=== PATIENT | female | born 1995 | race Caucasian/White ===

== ENCOUNTER 2018-01-15 14:13 | Outpatient (CLI) | payer SELFPAY | END 2018-01-15 14:14 | disposition home or self-care (01) | LOC: LABBT 14:13 | PROVIDERS: ATTEND Orthopaedic Surgery | DX: Z01.818 Encounter for other preprocedural examination (principal); S82.842A Displaced bimalleolar fracture of left lower leg, initial encounter for closed fracture ==

== ENCOUNTER 2018-01-16 10:59 | Day surgery (SDC) | payer MEDICAID, SELFPAY ==
[2018-01-15 14:25] VITALS: BMI 27.4
[2018-01-16] MEDS ORDERED: CEFAZOLIN/Water 2 GM/20 ML SYRINGE ONE (11:24)
[2018-01-16] MEDS ORDERED: Ropivacaine 0.2% HCl/PF 20 ML ONE (11:49)
[2018-01-16] MEDS ORDERED: Midazolam HCl 2 mg/2 ml Vial ONE ×4 (11:49→14:17)
[2018-01-16] MEDS ORDERED: Fentanyl 100 MCG/2 ML VIAL ONE ×2 (11:49→12:33)
[2018-01-16] MEDS ORDERED: Dexamethasone 4 mg/ml Vial ONE (11:49)
[2018-01-16] MEDS ORDERED: traMADol HCl 50 MG TAB PO PRN ×2 (12:19)
[2018-01-16] MEDS ORDERED: Ondansetron HCl/PF 4 MG/2 ML Vial IVP PRN (12:19)
[2018-01-16] MEDS ORDERED: Ropivacaine 0.2% 550 ML 550 ML NERVE BLCK SCH (12:19)
[2018-01-16] MEDS ORDERED: Zolpidem Tartrate 5 MG TAB PO PRN (12:19)
[2018-01-16] MEDS ORDERED: Promethazine HCl 25 MG/ML VIAL IM PRN (12:19)
[2018-01-16] MEDS ORDERED: Ketorolac Tromethamine 30 MG/ML VIAL IVP PRN (12:19)
[2018-01-16] MEDS ORDERED: Fentanyl 100 MCG/2 ML VIAL IV PRN (12:20)
[2018-01-16] MEDS ORDERED: HYDROcodone/Acetaminophen 7.5/325 mg Tablet PO PRN ×2 (12:22→12:23)
[2018-01-16] MEDS ORDERED: Ondansetron HCl/PF 4 MG/2 ML Vial ONE ×2 (12:33→15:36)
[2018-01-16] MEDS ORDERED: Ropivacaine 0.5% HCl/PF (150 MG/30 ML VIAL) ONE (13:11)
[2018-01-16] MEDS ORDERED: Bupivacaine PF 0.5% 30 ML VIAL ONE (13:11)
[2018-01-16] MEDS ORDERED: Ropivacaine 0.2% HCl/PF (40 MG/20 ML VIAL) ONE (13:11)
[2018-01-16] MEDS ORDERED: Ketorolac Tromethamine 30 MG/ML VIAL ONE (15:13)
[2018-01-16] MEDS ORDERED: ePHEDrine/0.9% NaCl/PF SYRINGE 50 mg/10 ml ONE (15:36)
[2018-01-16] MEDS ORDERED: Lidocaine 1% PF 5 ML VIAL ONE (15:36)
[2018-01-16] MEDS ORDERED: Dexamethasone 20 MG/5 ML VIAL ONE (15:36)
[2018-01-16] MEDS ORDERED: PHENYLEPHRINE-NS 100 MCG/ML 10 ML SYRINGE ONE (15:36)
[2018-01-16] MEDS ORDERED: PROPOFOL 200 MG/20 ML VIAL ONE (15:36)
--- NOTE | 2018-01-16 15:39 | RAD ---
LEFT ANKLE 3 VIEWS: HISTORY: Evaluate left ankle. FINDINGS/IMPRESSION: Three spot fluoroscopic intraoperative images of the left ankle demonstrate interval reduction and in ternal fixation of the medial and left malleolar fracture since 12/30/17. There are 2 screws to the m edial malleolus and a plate and screws through lateral malleolus. POS: MARION
--- NOTE | 2018-01-16 20:15 | OP ---
DATE OF SURGERY: 01/16/2018 PREOPERATIVE DIAGNOSIS: Left bimalleolar ankle fracture. POSTOPERATIVE DIAGNOSIS: Left bimalleolar ankle fracture. SURGICAL PROCEDURE: Open reduction and internal fixation of left bimalleolar ankle fracture. ANESTHESIA: General. SURGEON: Gilbert De Guzman M.D. OUTSIDE FOOD SERVER: Lee Alvarez PA-C. TOURNIQUET TIME: Approximately 60 minutes at 300 mmHg. ESTIMATED BLOOD LOSS: Less than 10 mL IMPLANTS: A Synthes 3.5 mm LCP hook plate with a combination of 3.5 mm cortical screws and 4.0 mm ca ncellous screws. COMPLICATIONS: None. DRAINS: None. SPECIMEN: None. OUTCOME: Satisfactory. INDICATIONS: The patient is a 22-year-old lady status post twisting injury to the left ankle, sustai jacqueline a bimalleolar ankle fracture approximately 2 weeks ago. The patient does have displacement of h er fractures and after discussion with patient including risks and benefits, we decided to proceed wi open reduction and internal fixation. Informed consent has been obtained. I believe all question s answered. PROCEDURE IN DETAIL: The patient was brought to the operating room and a timeout performed followed by induction of general anesthesia. The patient was positioned supine on the OR table and then a zaid rile prep and drape was performed of the left lower extremity. Next, the limb was exsanguinated with Esmarch bandage, tourniquet inflated to 300 mmHg. A vertical incision was made over the lateral mal leolus. After skin was sharply incised, dissection was carried down bluntly and then using minimal s ubperiosteal dissection, the fracture edges were identified and visualized. The fracture hematoma an d some early callus were removed using a combination of osteotome and rongeur. Next, the fracture wa s reduced and then held in place with a hook plate. The hooks were passed at the tip of the lateral malleolus and then 2 cortical screws were placed in the horizontal holes proximal to the fracture. O nce the plate was affixed to the lateral wall of the distal fibula, a third screw, this being a 4.0 m m cancellous screw partially threaded was passed from the tip of the hook plate obliquely across the fracture into the distal fibular canal. This resulted in excellent compression across the fracture a nd anatomic stabilization of the fracture. Next, a second incision was made overlying the medial mal leolus vertically. After skin was sharply incised, dissection was carried down bluntly to the underl daisy fracture. The fracture hematoma was lavaged from the fracture gap and then the fracture reduced and held in place with a bone tenaculum. Two 4.0 mm partially threaded cancellous screws were then passed from the tip of the medial malleolus obliquely across the fracture into the distal tibial meta physis. Final AP, lateral and mortise C-arm images were obtained and showed anatomic alignment of th e fracture. The two wounds were then irrigated with normal saline using bulb syringe and then closed in layers with 0 Vicryl deep, followed by 2-0 Vicryl and then akash for the final skin closure. A Xeroform gauze, Webril, and fiberglass splint was applied to the ankle and then patient was transfer red to recovery room in stable condition. There were no complications and she tolerated the procedur e well. It should be noted the tourniquet was let down after the dressing was completed.
== END 2018-01-16 17:33 | disposition home or self-care (01) ==
LOC: SDC 10:59
PROVIDERS: ATTEND Orthopaedic Surgery
PROC: 0QSH04Z Reposition Left Tibia with Internal Fixation Device, Open Approach (ICD-10-PCS; principal; 2018-01-16)
DX: S82.842A Displaced bimalleolar fracture of left lower leg, initial encounter for closed fracture (principal); I45.6 Pre-excitation syndrome; D64.9 Anemia, unspecified; G40.909 Epilepsy, unspecified, not intractable, without status epilepticus; F32.9 Major depressive disorder, single episode, unspecified; F17.200 Nicotine dependence, unspecified, uncomplicated; X50.1XXA Overexertion from prolonged static or awkward postures, initial encounter; Z79.899 Other long term (current) drug therapy; Z91.040 Latex allergy status
CPT/HCPCS: 76000; 96374; A4306; C1713; J1100; J1885; J2001; J2250; J2405; J2704; J2795; J3010; S0020

== ENCOUNTER 2019-03-15 10:37 | Inpatient (IN) | payer OTHER, SELFPAY ==
[2019-03-15] MEDS ORDERED: Acetaminophen 500 MG TAB ONE (11:13)
[2019-03-15] MEDS ORDERED: Acetaminophen/Codeine 30-300mg Tablet PO PRN (11:28)
[2019-03-15] MEDS ORDERED: Ibuprofen 800 MG TAB PO PRN (11:28)
--- NOTE | 2019-03-15 11:34 | PDOC.EVN ---
Event Note - Event Note Event Note: OBGYN Deputy General Counsel Time: 1129 Interim History and Physical CC: Patient has arrived from the [facility] for PID admittance. I discussed the case with Dr Johnson, [facility] HPI: She presented there with pelvic pain and HX after recent LMP. The exam there was compatible with CMT, and large number WBCs on wet prep. Physical: She was afebrile there with a lactate level of 1. Pulse was 120s though. Lab/Studies: WBCs there were 24. Her CT and sono there were negative. Meds given: She was given Rocpehin (2grams) and Doxy 9100mg) over there. They louise labs there but we do not have access to results. 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 Plan: we will admit and: Start IV Flagyl, Rocephin, and Doxy. We will get our baseline CBC, CMP, GC and CGL, VP3 in our ED. I will go and see in next few minutes.
[2019-03-15] MEDS ORDERED: metroNIDAZOLE 500 MG/100 ML BAG ONE (11:36)
[2019-03-15 12:01] LABS: Hemoglobin 14.3 g/dL (12.0-16.0); Mean Corpuscular Hemoglobin 31.5 pg (27.0-31.0); Mean Corpuscular Volume 95.5 fL (78.0-98.0); Platelet Count 236 thou/uL (130-400); RBC Distribution Width 12.8 % (11.5-14.5); Red Blood Cell (RBC) Count 4.53 mill/uL (4.20-5.40)
[2019-03-15 12:13] LABS: White Blood Cell (WBC) Count 24.7 thou/uL (4.8-10.8)
[2019-03-15 12:17] LABS: ALT (SGPT) 11 U/L (8-55); AST (SGOT) 21 U/L (5-34); Alkaline Phosphatase 88 U/L (40-150); Anion Gap 15 mmol/L (10-20); BUN (Urea Nitrogen) 5 mg/dL (7.0-18.7); Bilirubin, Total 0.9 mg/dL (0.2-1.2); Calc. Creatinine Clearance 0 mL/min (70-130); Calcium 8.8 mg/dL (7.8-10.44); Carbon Dioxide 20 mmol/L (22-29); Chloride 105 mmol/L (98-107); Estimated GFR-MDRD 89; Globulin 2.9 g/dL (2.4-3.5); Glucose 91 mg/dL (70-105); Potassium 3.8 mmol/L (3.5-5.1); Protein, Total 6.9 g/dL (6.0-8.3); Sodium 136 mmol/L (136-145)
[2019-03-15 12:27] LABS: Band 8 % (5-11); Lymphocytes 11 % (21-51); MDiff Complete? YES; Monocytes 3 % (0-10); Neutrophil 75 % (42-75); Platelet Morphology Comment Appears Adequate; RBC Morphology Normal; Reactive Lymphocytes 3 % (0-10)
[2019-03-15] MEDS ORDERED: cefTRIAXone\\ROCEPHIN 2 GM in Sodium Chloride 0.9% 100 ML IVPB SCH (12:30)
--- NOTE | 2019-03-15 13:00 | PDOC.FPRHP ---
- History of Present Illness Chief Complaint: Pelvic Pain History of Present Illness: Patient is a 24 yo multip first seen at the [facility] this AM and DX with PID there. C /O pelvic pain after recent LMP and some irregular bleeding as well. Pos for Methamphetamine. She had a CT and sono at the [facility] with normal appendix and no TOA. Normal flow to both ovaries. UDS pos for meth and amphetamines. Review of Systems: pos for remote asthma. Smoker. ED Course: Patient arrived in ED s/p rocephin and doxy at the [facility]. HR waas still 120-130s. Had 2 liters in ED at the [facility]. - Allergies/Adverse Reactions Allergies Allergy/AdvReac Type Severity Reaction Status Date / Time Latex, Natural Rubber Allergy Intermediate Severe Verified 01/15/18 14:25 Hives No Known Drug Allergies Allergy Verified 01/15/18 14:25 - Home Medications Medication Instructions Recorded Confirmed Type Acetaminophen W/ Codeine 1 tab PO Q4H PRN #0 tab 04/29/15 01/15/18 Rx [Acetaminophen/Codeine #3] Ibuprofen [Motrin] 800 mg PO Q8HR #0 tab 04/29/15 01/15/18 Rx - History PMHx: Remote Asthma PSHx: BTL Rhinoplasty after FX FHx: Social: Pos smoker Used Meth/amphetamines last 24 hrs (pos UDS) - Vital signs BP: [130/80s] HR: [130] RR: [16-18] Tmax: [] Pox: []% on [] Wt: [] - Physical Exam Constitutional: other (slightly lethargic but recieved narcotics and ativan in ED at the [facility] for the HR) -HEENT: Poor back molar dentition Chest: other (possible systolic murmur) Lungs: no wheezing, no retractions Abdomen: non-tender, bowel sounds present Musculoskeletal: normal structure Psychiatric: intact recent and remote memory (but needs prompting) FMR H&P: Results - Labs Result Diagrams: 03/15/19 11:45 03/15/19 11:46 Lab results: WBC 24.7 thou/uL (4.8-10.8) H 03/15/19 11:45 Hgb 14.3 g/dL (12.0-16.0) 03/15/19 11:45 Hct 43.2 % (36.0-47.0) 03/15/19 11:45 MCV 95.5 fL (78.0-98.0) 03/15/19 11:45 Plt Count 236 thou/uL (130-400) 03/15/19 11:45 Band Neuts % (Manual) 8 % (5-11) 03/15/19 11:45 Sodium 136 mmol/L (136-145) 03/15/19 11:46 Potassium 3.8 mmol/L (3.5-5.1) 03/15/19 11:46 Chloride 105 mmol/L (98-107) 03/15/19 11:46 Carbon Dioxide 20 mmol/L (22-29) L 03/15/19 11:46 BUN 5 mg/dL (7.0-18.7) L 03/15/19 11:46 Creatinine 0.78 mg/dL (0.6-1.1) 03/15/19 11:46 Glucose 91 mg/dL (70-105) 03/15/19 11:46 Calcium 8.8 mg/dL (7.8-10.44) 03/15/19 11:46 Total Bilirubin 0.9 mg/dL (0.2-1.2) 03/15/19 11:46 AST 21 U/L (5-34) 03/15/19 11:46 ALT 11 U/L (8-55) 03/15/19 11:46 Alkaline Phosphatase 88 U/L (40-150) 03/15/19 11:46 Serum Total Protein 6.9 g/dL (6.0-8.3) 03/15/19 11:46 Albumin 4.0 g/dL (3.5-5.0) 03/15/19 11:46 - EKG Interpretation EKG: Sinus Tach in ED FMR H&P: Upper Level - Plan Date/Time: 03/15/19 1300 [employer]ILL[employer] H&P Note PCP: Mic HPI: This is a 24 yo F who presented to the [facility] ED this morning with chief complaint of worsening abdominal pain for 1 day. The pain started in the suprapubic region and has now spread to flank and back. She denies N/V/D, fevers , chills, or sweats but has had general malaise. The pain was 7/10 when she came in but is now 3/10. She admits to using meth 2-3 days ago. She denies burning or blood with urination. Her period ended on 2 days ago but has passed some clots today. PMH: epilepsy (last seizure 1 year ago, not taking meds nor following with neurology), Asthma PSH: tubal ligation OB hx: , x4 , HTN in Table Games Shift Manager: Abnormal paps, regular menses every 28 days 3-4 days Meds: none Allergies: latex Soc Hx: 1.5 ppd smoker for 5 years, social drinker, states last meth uses 2-3 days ago Fm Hx: mom of unknown cancer REVIEW OF SYSTEMS: Gen: no fever, chills, or sweats Neuro: denies headache Eyes: no visual changes ENT: no hearing changes, no sore throat, no congestion Resp:+ dry cough, no SOB Card: no chest pain, denies palpitations GI: no N/V/D, + abdominal pain, see hpi MSK: no myalgias, no joint pain/stiffness Heme: no easy bruising/bleeding, no blood thinners Skin: no rash, no erythema Vitals: T: 100.4 R: 18 BP: 120/78 P:130 Sat: 98% on RA Wt: 60kg PHYSICAL EXAMINATION: General: NAD, alert and oriented x3 HEENT: PERRLA, EOMI, normal sclera, rotted left lower molar, no apparent abscess affecting gums Neck: Supple. Full ROM. Heart/Cardiovascular System: RRR, Cap refill < 3 seconds, no rub, 2/6 systolic murmur Lungs/Respiratory System: CTA-B, no resp distress Abdomen/Gastro-Intestinal System: no guarding, no rigidity, tenderness in LLQ and RLQ, no rebound, normal bowel sounds Extremities: Warm extremities. No cyanosis or edema Neuro: No gross deficits appreciated. CN 2-12 grossly intact Psychiatry: Awake, Alert and cooperative with exam, tearful when told she could not go outside to smoke cigarette Skin: No lesions, rashes, or ulcers, old cutting cornell on wrist, no apparent track cornell Musculoskeletal: Full ROM A/P: # PID - WBC 24.1, LA 1.0 at med - rocephin, doxy, flaggyl - blood culture, urine culture, gc/ct, VP3+for BV - CT abd shows stranding around uterus, pelvic US WNL # Tachycardia - LA 1.0, infection could be contributing - main source likely meth use, UDS+ for amphetamines - received 2L crystalloid at MED, will add another 1L and continue fluids # Systolic murmur - states she had murmur as child - will order echo in light of infection and murmur - 2 minor pace criteria: drug use, fever will await echo, no immunologic or vascular phenomena apparent at this point Fluids: NS 75ml Code: full Dispo: 1-2 days pending resolution of infection
--- NOTE | 2019-03-15 13:19 | PDOC.EVN ---
Event Note - Event Note Event Note: OBGYN Faculty History and Physical ATTESTATION: I have seen and examined the patient with Dr Frazier at bedside in ED bed 4. Agree with plan for : IV and po ABX Serial CBCs Echo for murmur GC and CHL sent VP3 in process Sono and CT done at other location
[2019-03-15] MEDS: Sodium Chloride 0.9% 1,000 ML IV SCH (15:10)
[2019-03-15 15:16] VITALS: BMI 24.0
[2019-03-15] MEDS: metroNIDAZOLE 500 MG in Premix Bag 1 BAG IVPB SCH (20:34)
[2019-03-15] MEDS: Doxycycline 100 MG CAP PO SCH (20:52)
[2019-03-15] MEDS ORDERED: Ondansetron PF 4 MG/2 ML Vial SLOW IVP PRN (21:36)
[2019-03-16 00:47] VITALS: TEMP 98.3
[2019-03-16] MEDS: metroNIDAZOLE 500 MG in Premix Bag 1 BAG IVPB SCH (04:26)
[2019-03-16] MEDS: Sodium Chloride 0.9% 1,000 ML IV SCH (04:26)
--- NOTE | 2019-03-16 05:52 | PDOC.FM ---
- Subjective Subjective: This morning patient states she is feeling much better. She was able to go outside for multiple smoke breaks overnight. She denies fevers, chills, sweats overnight. She still has mild spotting after using the restroom but no clots passing. She is tolerating PO intake without N/V/D. She still has some throbbing pelvic pain at times but states it is almost resolved this AM. - Objective Vital Signs & Weight: Vital Signs (12 hours) Temp Pulse Resp BP Pulse Ox 03/16/19 04:00 98.3 F 88 16 96/61 97 03/16/19 00:00 98.3 F 98 16 103/67 98 03/15/19 20:34 100 03/15/19 19:55 98.1 F 118 H 16 105/62 100 Weight Weight 59.8 kg I&O: 03/14/19 03/15/19 03/16/19 06:59 06:59 06:59 Intake Total 1818 Balance 1818 Result Diagrams: 03/15/19 11:45 03/15/19 11:46 Phys Exam - Physical Examination Constitutional: NAD HEENT: PERRLA, moist MMs Respiratory: no wheezing, clear to auscultation bilateral Cardiovascular: RRR, no significant murmur Gastrointestinal: soft, non-tender, no distention, positive bowel sounds Musculoskeletal: no edema, pulses present Neurological: non-focal, moves all 4 limbs Psychiatric: normal affect, A&O x 3 Skin: no rash, cap refill <2 seconds Dx/Plan (1) Methamphetamine use Code(s): F15.10 - OTHER STIMULANT ABUSE, UNCOMPLICATED Status: Acute (2) PID (acute pelvic inflammatory disease) Code(s): N73.0 - ACUTE PARAMETRITIS AND PELVIC CELLULITIS Status: Acute - Plan Plan: # PID - WBC 24.1, LA 1.0 at med - AM CBC pending will f/u - rocephin, doxy, flaggyl - blood culture, urine culture, gc/ct, VP3+for BV - CT abd shows stranding around uterus, pelvic US WNL # Tachycardia- resolved - LA 1.0, infection could be contributing - main source likely meth use, UDS+ for amphetamines # Systolic murmur- resolved - suspect murmur related to tachycardia - 2 minor pace criteria: drug use, fever will await echo, no immunologic or vascular phenomena apparent at this point Fluids: NS 75ml Code: full Dispo:patient wants to go home this AM, advised will see how breakfast and CBC go. If home, 7 days of doxy, flaggyl. Close f/u with PCP.
--- NOTE | 2019-03-16 06:20 | PDOC.EVN ---
Event Note - Event Note Event Note: HD 2 Admitted yesterday Working DX: PID ABX: Doxy, Flagyl, Rocephin Agree with Dr Karin Tinajero Patient wants to go home today, we advised awaiting CBC result first. O. Afebrile since afebrile GC and Chl pending...HIV pending Patient going outside to smoke A/P: Possible PID, Meth pos on UDS: feels better If goes home, needs Doxy and flagyl for 7 days. WE will check GC and CHL at follow up. No murmur heard today as pulse better, so may have been due to the high pulse rate from meth. So, ok to cancel ECHO.
[2019-03-16 06:27] LABS: #Eosinphils 0.2 thou/uL (0.0-0.7); #Lymphocytes 2.7 thou/uL (1.20-3.40); #Monocytes 0.7 thou/uL (0.11-0.59); #Neutrophils 11.4 thou/uL (1.40-6.50); %Basophils 0.2 % (0.0-1.0); %Eosinophils 1.1 % (0.0-10.0); %Lymphocytes 17.8 % (21.0-51.0); %Monocytes 4.9 % (0.0-10.0); Hemoglobin 12.2 g/dL (12.0-16.0); Mean Corpuscular HGB CONC 33.4 g/dL (32.0-36.0); Mean Corpuscular Hemoglobin 32.3 pg (27.0-31.0); Mean Corpuscular Volume 96.8 fL (78.0-98.0); Mean Platelet Volume 7.3 fL (7.4-10.4); Platelet Count 191 thou/uL (130-400); RBC Distribution Width 12.5 % (11.5-14.5); Red Blood Cell (RBC) Count 3.78 mill/uL (4.20-5.40)
[2019-03-16 07:06] LABS: Syphilis Antibody Nonreactive (Nonreactive); Syphilis Antibody Index 0.02 S/CO (<1.00 Non-Reactive)
--- NOTE | 2019-03-16 07:11 | PDOC.EVN ---
Event Note - Event Note Event Note: DISCHARGE NOTE Admit date: 03/15/19 Discharge date: 03/16/19 Location: 4 Bed [place] Diagnosis: Pelvic Inflammatory disease- resolving Methampetamine use Tachycardia-resolved Smoker COURSE: In brief, this patient was admitted from the [facility] for IV antibiotics after work up there resulted in a DX of PID. CT and sono there were normal. 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 We continued those antibiotics and added flagyl this admit. Admit WBC were 24 and were 15 on HD2 (first morning after admit). GC and chl were colllected but still pending. CMP was normal. UDS was pos for meth and amphetamines at the [facility]. that may have explained the initial tachycardia. Her lctate was 1 (normal) at the [facility] She remained afebrile during the stay here. She requested DC home 03/16/19 am. As clinically improved with WBCs way down from admit, we elected DC to home as no TOA and could tolerate po. Oral ABX will be doxy and flagyl for 7 days. Disposition: She is to followup in 1 week.
[2019-03-16 08:00] VITALS: BP 102/63
[2019-03-16] MEDS: Doxycycline 100 MG CAP PO SCH (10:28)
--- NOTE | 2019-03-16 12:46 | PDOC.EVN ---
Event Note - Event Note Event Note: Wants to go home. Tolerating diet, has left floor to smoke earlier. VSS AF since admit. Abdomen is soft, no guarding or rebound. Plan; DC IV ABX. Send home on Flagyl 500 BID and Doxycycline 100 mg BID x 7 days. Pt. should f/u at [facility]; can make own appt. Precations are reviewed in detail.
[2019-03-16] MEDS ORDERED: metroNIDAZOLE 500 MG TAB PO SCH (21:00)
== END 2019-03-16 14:21 | disposition home or self-care (01) | DRG 759 ==
LOC: ERS 10:37 → T4-B 11:24
PROVIDERS: ADMIT Obstetrics & Gynecology; ATTEND Obstetrics & Gynecology
DX: N73.9 Female pelvic inflammatory disease, unspecified (principal); F17.210 Nicotine dependence, cigarettes, uncomplicated; F15.90 Other stimulant use, unspecified, uncomplicated; J45.909 Unspecified asthma, uncomplicated; G40.909 Epilepsy, unspecified, not intractable, without status epilepticus; R00.0 Tachycardia, unspecified; Z98.51 Tubal ligation status; Z91.040 Latex allergy status
CPT/HCPCS: 36415; 80053; 85025; 86780; 87480; 87491; 87510; 87591; 87660; 93005; J0696; J2405; J3490

== ENCOUNTER 2021-03-16 01:10 | Emergency (ER) | payer SELFPAY ==
[2021-03-16] MEDS ORDERED: Lorazepam 2 MG/ML VIAL ONE (01:40)
[2021-03-16] MEDS ORDERED: Ondansetron PF 4 MG/2 ML Vial ONE (01:47)
== END 2021-03-16 02:04 | disposition home or self-care (01) ==
LOC: ERS 01:10
DX: F41.0 Panic disorder [episodic paroxysmal anxiety] (principal); G40.909 Epilepsy, unspecified, not intractable, without status epilepticus; F17.210 Nicotine dependence, cigarettes, uncomplicated
CPT/HCPCS: 96374; 96375; J2060; J2405

== ENCOUNTER 2021-04-05 19:46 | Emergency (ER) | payer SELFPAY | END 2021-04-05 21:45 | disposition left against medical advice (07) | LOC: ERS 19:46 | DX: Z53.21 Procedure and treatment not carried out due to patient leaving prior to being seen by health care provider (principal) ==